=== PATIENT | female | born 1975 ===

== ENCOUNTER 2017-04-28 17:37 | Emergency (ER) | payer MEDICAID, OTHER ==
[2017-04-28 17:50] VITALS: BP 127/82; PULSE 73; RESP 16; TEMP 97.9; O2SAT 100
--- NOTE | 2017-04-28 18:24 | ED PDOC ---
HPI: Back Time Seen by Provider: 04/28/17 17:54 Chief Complaint (Nursing): Back Pain Chief Complaint (Provider): Back pain History Per: Patient History/Exam Limitations: no limitations Onset/Duration Of Symptoms: Days (x1 week), Intermittent Episodes Current Symptoms Are (Timing): Still Present Previous Symptoms: Back Pain Exacerbating Factor(s): Movement Additional Complaint(s): Margy Rivas is a 41 year old female who presents to the emergency department complaining of lower back pain onset for 1 week. Patient reports she has had similar symptoms in the past and motrin usually helped but for the psat week motrin has not helped. She last took motrin at 9am today with no relief. Patient denies any dysuria, fever, chills or nausea, no acute bowel or bladder incontinence. PMD: Not sure of the name Past Medical History Reviewed: Historical Data, Nursing Documentation, Vital Signs Vital Signs: Last Vital Signs Temp 97.9 F 04/28/17 17:47 Pulse 73 04/28/17 17:47 Resp 16 04/28/17 17:47 BP 127/82 04/28/17 17:47 Pulse Ox 100 04/28/17 17:47 - Medical History PMH: Back Problems, Hypercholesterolemia - Family History Family History: States: No Known Family Hx - Living Arrangements Living Arrangements: With Family - Social History Current smoker - smoking cessation education provided: No Alcohol: None Drugs: Denies - Home Medications Home Medications: Ambulatory Orders Medication Instructions Recorded Famotidine [Pepcid] 20 mg PO HS #20 tab 06/26/14 Ibuprofen [Motrin] 600 mg PO Q6H #20 tab 06/26/14 Fluticasone Nasal [Flonase] 1 spray MICHAEL DAILY 10/18/14 Montelukast [Singulair] 10 mg PO DAILY 10/18/14 Cyclobenzaprine [Cyclobenzaprine 10 mg PO TID PRN #20 tab 04/28/17 HCl] Nitrofurantoin Macrocrystals 100 mg PO BID #14 cap 04/28/17 [Macrobid] traMADol [Ultram] 50 mg PO TID PRN #15 tab 04/28/17 - Allergies Allergies/Adverse Reactions: Allergies Allergy/AdvReac Type Severity Reaction Status Date / Time No Known Allergies Allergy Verified 04/28/17 17:47 Review of Systems ROS Statement: Except As Marked, All Systems Reviewed And Found Negative Constitutional: Negative for: Fever, Chills Gastrointestinal: Negative for: Nausea Genitourinary Female: Negative for: Dysuria, Frequency, Incontinence Musculoskeletal: Positive for: Back Pain (lower, x 1 week, no fall or trauma) Physical Exam - Reviewed Nursing Documentation Reviewed: Yes Vital Signs Reviewed: Yes - Physical Exam Appears: Positive for: Well, Non-toxic, No Acute Distress Skin: Negative for: Rash Eye Exam: Positive for: Normal appearance Neck: Positive for: Painless ROM. Negative for: Pain On Movement Of Neck Cardiovascular/Chest: Positive for: Regular Rate, Rhythm Respiratory: Positive for: Normal Breath Sounds Back: Positive for: Normal Inspection, Vertebral Tenderness (diffused tenderness and muscle spasm to lower lumbar region), Muscle Spasm (lumbar ). Negative for: L CVA Tenderness, R CVA Tenderness Rectal: Positive for: Other (neg bilateral straight leg raise) Extremity: Negative for: Pedal Edema Neurologic/Psych: Positive for: Alert, Oriented - Laboratory Results Urine POC: Negative Urine dip results: Positive for: Leukocyte Esterase (race), Blood (small) - ECG O2 Sat by Pulse Oximetry: 100 (RA) Pulse Ox Interpretation: Normal Medical Decision Making Medical Decision Making: Initial Impression: 41 year old female with lumbar strain Initial Plan: --Urine dip --Urine --Tylenol 975 mg PO --Valium 5 mg PO --Toradol 30 mg IM --Ultram 50 mg PO --Urine culture --Urinalysis --reevaluation Patient reports improvement in pain after meds given. UTIs noted. Patient given prescriptions for Flexeril and tramadol as well as Macrobid. She was advised to follow up with primary doctor in 1-2 days. Scribe Attestation: Documented by Cory Fagan, acting as a scribe for Angela PENA. Provider Scribe Attestation: All medical record entries made by the Scribe were at my direction and personally dictated by me. I have reviewed the chart and agree that the record accurately reflects my personal performance of the history, physical exam, medical decision making, and the department course for this patient. I have also personally directed, reviewed, and agree with the discharge instructions and disposition. Disposition - Clinical Impression Clinical Impression: Back pain, Urinary tract infection - Patient ED Disposition Is Patient to be Admitted: No Counseled Patient/Family Regarding: Studies Performed, Diagnosis, Need For Followup, Rx Given - Disposition Referrals: [facility] [Outside] Disposition: Routine/Home Disposition Time: 19:37 Condition: IMPROVED Additional Instructions: Take prescription meds as directed. Follow up with primary doctor in 1-2 days. Prescriptions: Cyclobenzaprine [Cyclobenzaprine HCl] 10 mg PO TID PRN #20 tab PRN Reason: Muscle Spasm Nitrofurantoin Macrocrystals [Macrobid] 100 mg PO BID #14 cap traMADol [Ultram] 50 mg PO TID PRN #15 tab PRN Reason: Pain, Moderate (4-7) Instructions: Back Pain (ED), Urinary Tract Infection in Women (ED) Forms: [employer] (Syrian)
[2017-04-28 19:07] LABS: RBC URINE 12 /hpf (0-3); URINE BACTERIA OCC (<OCC); URINE BILIRUBIN NEGATIVE (NEGATIVE); URINE BLOOD SMALL (NEGATIVE); URINE CALCIUM OXALATE CRYSTALS OCC /hpf (<OCC); URINE COLOR YELLOW (YELLOW); URINE GLUCOSE (UA) NEG (Normal); URINE KETONE NEGATIVE (NEGATIVE); URINE LEUKOCYTE ESTERASE SMALL Leu/uL (Negative); URINE PROTEIN NEGATIVE (NEGATIVE); URINE UROBILINOGEN 0.2-1.0 mg/dL (0.2-1.0)
[2017-04-28 19:12] LABS: WBC URINE 23 /hpf (0-5)
== END 2017-04-28 19:49 | disposition home or self-care (01) ==
LOC: H.ER 17:37
DX: N39.0 Urinary tract infection, site not specified (principal); M54.9 Dorsalgia, unspecified
CPT/HCPCS: 81003; 81025; 87086; 96372; 99282; J1885

== ENCOUNTER 2017-12-08 19:00 | Emergency (ER) | payer OTHER ==
[2017-12-08] MEDS ORDERED: Oxycodone/Acetaminophen 5/325 mg Tab PO STA (19:31)
[2017-12-08] MEDS ORDERED: Lidocaine 5% Patch TD STA (19:31)
[2017-12-08] MEDS ORDERED: Oxycodone/Acetaminophen 5/325 mg Tab ONE (20:02)
[2017-12-08] MEDS ORDERED: Lidocaine 5% Patch TD ONE (20:05)
[2017-12-08 20:38] LABS: SQUAMOUS EPITHIAL 9 /hpf (0-5); URINE BACTERIA MANY (<OCC); URINE BILIRUBIN NEGATIVE (NEGATIVE); URINE BLOOD SMALL (NEGATIVE); URINE CLARITY CLOUDY (Clear); URINE COLOR YELLOW (YELLOW); URINE GLUCOSE (UA) NEG (Normal); URINE LEUKOCYTE ESTERASE SMALL Leu/uL (Negative); URINE PROTEIN NEGATIVE (NEGATIVE); URINE UROBILINOGEN 0.2-1.0 mg/dL (0.2-1.0)
[2017-12-08 21:07] VITALS: BP 128/78; PULSE 70; RESP 18; TEMP 98.2; O2SAT 99
--- NOTE | 2017-12-08 21:15 | ED PDOC ---
HPI: Back Time Seen by Provider: 12/08/17 19:16 Chief Complaint (Nursing): Back Pain History Per: Patient Additional Complaint(s): Pt. states for the past 2 weeks she's had L sided atraumatic, non-radiating lower back pain. Three 3 days ago she developed dysuria. Pt. states she's been taking Motrin without relief. Denies hematuria, flank pain, fever, trauma, incontinence, numbness, tingling, saddle paresthesias, abdominal pain. Past Medical History Reviewed: Historical Data, Nursing Documentation, Vital Signs Vital Signs: Last Vital Signs Temp 98.2 F 12/08/17 21:04 Pulse 70 12/08/17 21:04 Resp 18 12/08/17 21:04 BP 128/78 12/08/17 21:04 Pulse Ox 99 12/08/17 21:04 - Medical History PMH: Back Problems, Hypercholesterolemia - Surgical History Surgical History: No Surg Hx - Family History Family History: States: No Known Family Hx - Home Medications Home Medications: Ambulatory Orders Medication Instructions Recorded Famotidine [Pepcid] 20 mg PO HS #20 tab 06/26/14 Ibuprofen [Motrin] 600 mg PO Q6H #20 tab 06/26/14 Fluticasone Nasal [Flonase] 1 spray MICHAEL DAILY 10/18/14 Montelukast [Singulair] 10 mg PO DAILY 10/18/14 Cyclobenzaprine [Cyclobenzaprine 10 mg PO TID PRN #20 tab 04/28/17 HCl] Nitrofurantoin Macrocrystals 100 mg PO BID #14 cap 04/28/17 [Macrobid] traMADol [Ultram] 50 mg PO TID PRN #15 tab 04/28/17 Cyclobenzaprine [Cyclobenzaprine 10 mg PO Q8 PRN #10 tab 12/08/17 HCl] Naproxen [Naprosyn] 500 mg PO BID PRN #14 tab 12/08/17 Nitrofurantoin Macrocrystals 100 mg PO BID #14 cap 12/08/17 [Macrobid] - Allergies Allergies/Adverse Reactions: Allergies Allergy/AdvReac Type Severity Reaction Status Date / Time No Known Allergies Allergy Verified 04/28/17 17:47 Review of Systems ROS Statement: Except As Marked, All Systems Reviewed And Found Negative Musculoskeletal: Positive for: Back Pain Physical Exam - Physical Exam Appears: Positive for: Well, Non-toxic, In Acute Distress (mild painful distress ) Skin: Positive for: Normal Color, Warm. Negative for: Rash Eye Exam: Positive for: Normal appearance Gastrointestinal/Abdominal: Positive for: Normal Exam, Soft. Negative for: Tenderness Back: Positive for: Normal Inspection, Other (L sided paralumbar tenderness). Negative for: L CVA Tenderness, R CVA Tenderness Extremity: Positive for: Normal ROM, Other (SLR negative b/l) Neurologic/Psych: Positive for: Alert, Oriented, Gait (steady, unassisted). Negative for: Aphasia, Facial Droop - ECG O2 Sat by Pulse Oximetry: 99 - Progress ED Course And Treament: Percocet 1 tab PO, flexeril 10mg PO, lidoderm patch, UA ordered. On re-evaluation, pt. sleeping comfortably and is easily arousable. Reports moderate analgesia. No CVA tenderness b/l. Disposition - Clinical Impression Clinical Impression: Urinary tract infection, Low back pain - Patient ED Disposition Is Patient to be Admitted: No - Disposition Referrals: [facility] [Outside] [facility] [Outside] Disposition: Routine/Home Disposition Time: 21:00 Condition: STABLE Additional Instructions: Follow up with PMD in 2 days for further evaluation Return to ED immediately if symptoms worsen Prescriptions: Cyclobenzaprine [Cyclobenzaprine HCl] 10 mg PO Q8 PRN #10 tab PRN Reason: Muscle Spasm Naproxen [Naprosyn] 500 mg PO BID PRN #14 tab PRN Reason: Pain Nitrofurantoin Macrocrystals [Macrobid] 100 mg PO BID #14 cap Instructions: Low Back Pain (DC), Urinary Tract Infection, Adult (DC) Forms: [employer] (Italian)
== END 2017-12-08 21:09 | disposition home or self-care (01) ==
LOC: H.ER 19:00
DX: N39.0 Urinary tract infection, site not specified (principal); M54.5 Low back pain; E78.00 Pure hypercholesterolemia, unspecified